=== PATIENT | male | born 1950 | race Two or more races ===

== ENCOUNTER 2019-08-12 05:47 | Inpatient (IN) | payer MEDICARE ==
[2019-08-12] VITALS (15 sets, daily range): BP systolic 108–151; BP diastolic 57–91
[~2019-08-12] VITALS: Ht 167.6 cm; Wt 79.8 kg
[~2019-08-12 05:47] MED LIST: FLOMAX0.4 MG ORAL; LIPITOR10 MG ORAL; METOPROLOL SUCC25 MG ORAL
[2019-08-12] MEDS ORDERED: Lidocaine 1% MPF 10mg/ml 5ml ONE (06:46)
[2019-08-12] MEDS ORDERED: LR 1000ml 1,000 ML IVLG SCH (06:47)
[2019-08-12] MEDS ORDERED: Sodium Chloride 10ml vial INJ ONE (06:50)
[2019-08-12] MEDS ORDERED: Dexamethasone 4mg/ml vial ONE (06:50)
[2019-08-12] MEDS ORDERED: fentaNYL 100 mcg/2 mL IV ONE (06:51)
[2019-08-12] MEDS ORDERED: Ketamine 500mg/10ml vial ONE (06:51)
[2019-08-12] MEDS ORDERED: Meperidine 25mg/0.5ml Inj (FOR RIGORS ONLY) IV PRN (07:00)
[2019-08-12] MEDS ORDERED: Hydromorphone 0.5mg/0.5ml inj IVP PRN (07:00)
[2019-08-12] MEDS ORDERED: Acetaminophen (Non formulary) 100 ML IV ONE (07:00)
[2019-08-12] MEDS ORDERED: fentaNYL 100 mcg/2 mL IV PRN (07:00)
[2019-08-12] MEDS ORDERED: HYDROcodone/Acetamin 5/325 tab ORAL PRN ×2 (07:00→09:45)
[2019-08-12] MEDS ORDERED: DiphenhydrAMINE 50mg/ml Inj IVP PRN (07:00)
[2019-08-12] MEDS ORDERED: Atropine Sulfate 0.4mg/ml inj IVP PRN (07:00)
[2019-08-12] MEDS ORDERED: oxyCODONE HCL/Acetaminophen 5/325mg ORAL PRN (07:00)
[2019-08-12] MEDS ORDERED: Ketorolac 30mg Inj IV PRN ×2 (07:00)
[2019-08-12] MEDS ORDERED: LORazepam Inj 2mg/ml 1ml IV PRN (07:00)
[2019-08-12] MEDS ORDERED: Labetalol 5mg/ml 20ml vial IV PRN (07:00)
[2019-08-12] MEDS ORDERED: ceFAZolin sod 1 GM in NS 55 ML IVPB ONE (07:00)
[2019-08-12] MEDS ORDERED: Midazolam 2mg/2ml Inj IVP PRN (07:00)
[2019-08-12] MEDS ORDERED: HYDROcodone/Acetamin 7.5/325 tab ORAL PRN (07:00)
[2019-08-12] MEDS ORDERED: Metoclopramide 10mg/2ml Inj IVP PRN (07:00)
--- NOTE | 2019-08-12 07:26 | Anethesia Preoperative Eval ---
Anesthesia Pre-op PMH/ROS General Date of Evaluation: Aug 12, 2019 Time of Evaluation: 07:41 Anesthesiologist: Molly ASA Score: ASA 3 Mallampati Score Class I : Soft palate, uvula, fauces, pillars visible Class II: Soft palate, uvula, fauces visible Class III: Soft palate, base of uvula visible Class IV: Only hard plate visible Mallampati Classification: Class II Surgeon: Cory Diagnosis: BPH Surgical Procedure: Open Simple Prostatectomy Anesthesia History: none Family History: no anesthesia problems Allergies: Coded Allergies: No Known Allergies (Unverified , 08/11/19) Medications: see eMAR Patient NPO?: Yes NPO Date: Aug 11, 2019 NPO Time: 1900 Past Medical History Cardiovascular: Reports: HTN, other - HL Gastrointestinal/Genitourinary: Reports: GERD, other - BPH HEENT: Reports: cataract (L), cataract (R) PSxH Narrative: Cholecystectomy Anesthesia Pre-op Phys. Exam Physician Exam Last Vital Signs Date Time Temp Pulse Resp B/P (MAP) Pulse Ox O2 Delivery O2 Flow Rate FiO2 08/12/19 07:08 97.6 81 20 134/84 (101) 98 08/12/19 06:37 Room Air Constitutional: NAD Neurologic: CN 2-12 intact Cardiovascular: RRR Respiratory: CTA Gastrointestinal: S/NT/ND Airway Exam Mallampati Score: Class II MO: full ROM: limited Teeth: missing, intact Anesthesia Pre-op A/P Risk Assessment & Plan Assessment: ASA 3 Plan: GA, SED, GlideScope Go Status Change Before Surgery: No Pre-Antibiotics Dru Gram Ancef IV Given Within 1 Hr of Incision: Yes Time Given: 08:01 Tera Barnes MD Aug 12, 2019 07:26
--- NOTE | 2019-08-12 07:27 | Immediate Post-Op Evaluation ---
Immediate Post-Op Evalulation Immediate Post-Op Evalulation Procedure: Open Simple Prostatectomy Date of Evaluation: Aug 12, 2019 Time of Evaluation: 09:55 IV Fluids: 900 LR Blood Products: 0 Estimated Blood Loss: 100 Urinary Output: 200 Blood Pressure Systolic: 117 Blood Pressure Diastolic: 78 Pulse Rate: 82 Respiratory Rate: 16 O2 Sat by Pulse Oximetry: 100 Temperature (Fahrenheit): 97.5 Pain Score (1-10): 2 Nausea: No Vomiting: No Complications 0 Patient Status: awake, reacts, patent, extubated, none Hydration Status: adequate Dru Gram Ancef IV Given Within 1 Hr of Incision: Yes Time Given: 08:01 Tera Barnes MD Aug 12, 2019 07:27
[2019-08-12] MEDS ORDERED: ProvayBlue 5mg/ml 10ml amp INJ ONE (07:30)
--- NOTE | 2019-08-12 07:46 | Pre-Procedure Note/Attestation ---
Pre-Procedure Note/Attestation Complete Prior to Procedure Planned Procedure: not applicable Procedure Narrative: open symple prostatectomy Indications for Procedure Pre-Operative Diagnosis: BPH Retention Attestation I attest that I discussed the nature of the procedure; its benefits; risks and complications; and alternatives (and the risks and benefits of such alternatives ), prior to the procedure, with the patient (or the patient's legal corporate sales representative). I attest that, if there was a reasonable possibility of needing a blood transfusion, the patient (or the patient's legal corporate sales representative) was given the [facility] standardized written summary, pursuant to the [place] Blood Safety Act ([place] Health and Safety Code # 1645, as amended). I attest that I re-evaluated the patient just prior to the surgery and that there has been no change in the patient's H&P, except as documented below: Jose L Ray MD Aug 12, 2019 07:46
[2019-08-12] MEDS ORDERED: Propofol 200mg/20ml IV ONE (08:00)
[2019-08-12] MEDS ORDERED: NS Irrig 1000ml ONE (08:00)
[2019-08-12] MEDS ORDERED: LR 1000ml ONE (08:00)
[2019-08-12] MEDS ORDERED: NS Irrig 2000ml IRRIG ONE (08:00)
[2019-08-12] MEDS ORDERED: Sterile Water Irrig 1000ml IRRIG ONE (08:00)
[2019-08-12] MEDS ORDERED: Neostigmine 1mg/ml 10ml Inj ONE (09:00)
[2019-08-12] MEDS ORDERED: Glycopyrrolate 0.2mg/ml 1ml Vial ONE (09:00)
--- NOTE | 2019-08-12 09:47 | 48 Hour Post Anesthesia Eval ---
Post Anesthesia Evaluation Procedure: Open Simple Prostatectomy Date of Evaluation: Aug 12, 2019 Time of Evaluation: 12:21 Blood Pressure Systolic: 156 0: 78 Pulse Rate: 72 Respiratory Rate: 18 Temperature (Fahrenheit): 98.2 O2 Sat by Pulse Oximetry: 100 Airway: patent Nausea: No Vomiting: No Pain Intensity: 2 Hydration Status: adequate Cardiopulmonary Status: Stable Mental Status/LOC: patient returned to baseline Follow-up Care/Observations: 0 Post-Anesthesia Complications: 0 Follow-up care needed: N/A Tear Barnes MD Aug 12, 2019 09:47
--- NOTE | 2019-08-12 09:53 | Brief Operative Note ---
Immediate Post Operative Note Operative Note Pre-op Diagnosis: BPH Retention Procedure: open simple prostatectomy Post-op Diagnosis: same Post-op Diagnosis: same as pre-op Surgeon: Wilian Ray Anesthesia: general Specimen: yes Complications: none Condition: stable Fluids: 500 Estimated Blood Loss: minimal Drains: none Implant(s) used?: No Jose L Ray MD Aug 12, 2019 09:53
[2019-08-12 10:39] LABS: HEMATOCRIT 36.2 % (42.0-52.0); HEMOGLOBIN 13.6 G/DL (14.2-18.0); MEAN CORPUSCULAR VOLUME 89 FL (80-99); PLATELET COUNT 147 K/UL (150-450); RED BLOOD COUNT 4.09 M/UL (4.70-6.10); RED CELL DISTRIBUTION WIDTH 11.1 % (11.6-14.8); WHITE BLOOD COUNT 9.2 K/UL (4.8-10.8)
--- NOTE | 2019-08-12 10:50 | NUR ---
NURSE NOTES: Patient was transferred from PACU via hospital bed. On 3L/min. No s/s of distress/pain at this moment. IV on L hand 20g intact and patent. 3-way joe noted, on CBI. Family at the bedside. Orientation on new unit given. Belongings were accounted and given to family. Side rails x2. Bed in the lowest, locked, and alarm on. Call light within reach. Will continue to monitor
[2019-08-12 10:53] LABS: ANION GAP 10 mmol/L (5-15); BLOOD UREA NITROGEN 16 mg/dL (7-18); CALCIUM 7.9 MG/DL (8.5-10.1); CARBON DIOXIDE 27 MMOL/L (21-32); CHLORIDE 106 MMOL/L (98-107); POTASSIUM 4.3 MMOL/L (3.5-5.1); SODIUM 143 MMOL/L (136-145)
[2019-08-12] MEDS: HYDROmorphone 1mg/ml Carpuject IVP PRN ×3 (13:04→22:12)
--- NOTE | 2019-08-12 14:09 | NUR ---
CASE MANAGEMENT:REVIEW 69 YR OLD MALE HERE FOR ELECTIVE SURGERY SI: BPH RETENTION 97.6 81 20 134/84 98% ON RA H/H-13.6/36.2 PLT-147 GLUCOSE+125 IS: TO SURGERY: OPEN SIMPLE PROSTATECTOMY IV ANCEF Q8HRS IVF@100/HR IV DILAUDID Q3HRS PRN : TO MED/SURG POST OP 3 EAST DCP: FROM HOME
[2019-08-12] MEDS: D5 1/2NS w/KCl 20mEq 1,000 ML IV SCH ×2 (14:30→20:43)
[2019-08-12] MEDS: ceFAZolin sod 2 GM in D5W 110 ML IV SCH ×2 (16:49→23:28)
[2019-08-12] MEDS: Docusate 100mg cap ORAL SCH (17:13)
--- NOTE | 2019-08-12 19:01 | NUR ---
NURSE NOTES: Received report from SHAUNA Dalton. Pt is awake, lying semi-russo's; comfortably resting. No signs of acute distress noted. Pt denies any pain at this time. AOx4; able to make needs known. Family at bedside. Checked IV site, line, and rate; patent and running. Dressing on the lower abdomen dry and intact. CBI noted; patent and running. No erythema, bleeding, or infiltration noted. Bed at lowest position. Brakes on. Siderails up x3. Call light within reach. Will continue to monitor.
--- NOTE | 2019-08-12 19:10 | NUR ---
HAND-OFF: Report given to SHAUNA Caceres.
[2019-08-12] MEDS: Tamsulosin 0.4mg cap ORAL SCH (20:42)
[2019-08-13] VITALS: BP 100/65
[2019-08-13] MEDS: HYDROmorphone 1mg/ml Carpuject IVP PRN ×5 (03:00→23:43)
[2019-08-13 04:00] VITALS: BP 101/63
[2019-08-13 07:01] LABS: ANION GAP 6 mmol/L (5-15); BLOOD UREA NITROGEN 17 mg/dL (7-18); CALCIUM 7.9 MG/DL (8.5-10.1); CARBON DIOXIDE 30 MMOL/L (21-32); CHLORIDE 104 MMOL/L (98-107); CREATININE 1.1 MG/DL (0.55-1.30); POTASSIUM 4.8 MMOL/L (3.5-5.1); SODIUM 139 MMOL/L (136-145)
--- NOTE | 2019-08-13 07:07 | NUR ---
NURSE NOTES: Report received from Nicki VILLATORO, rounds made. Patient resting in semi-fowlers position in bed, alert/oriented x4, calm. No distress on O2 3LNC. Encouraged IS. Denies NV on clear liquids. Complains of mild pain to lower abdomen, will medicate see eMAR. LH IV D5 1/2 + 20 KCL at 100 ml/hr infusing, site asymptomatic. CBI infusing via FC (in place with tape anchor, no bleeding or drainage at penile site), without difficulty, output light red, clear. Bilateral SCDs on. Spouse at bedside. Bed in lowest position, call light in reach, will continue to monitor. Addendum: 08/13/19 at 1237 by Sharri Pelaez RN Lower abdomen dressing CDI.
--- NOTE | 2019-08-13 07:07 | NUR ---
HAND-OFF: Report given to SHAUNA Harrell. Pt is awake and in stable condition. Plan of care endorsed.
[2019-08-13 07:10] LABS: BASOPHILS % (AUTO) 0.1 % (0.0-2.0); HEMATOCRIT 33.4 % (42.0-52.0); HEMOGLOBIN 12.4 G/DL (14.2-18.0); LYMPHOCYTES % (AUTO) 12.4 % (20.0-45.0); MEAN CORPUSCULAR VOLUME 89 FL (80-99); MONOCYTES % (AUTO) 8.2 % (1.0-10.0); NEUTROPHILS % (AUTO) 79.3 % (45.0-75.0); PLATELET COUNT 170 K/UL (150-450); RED BLOOD COUNT 3.76 M/UL (4.70-6.10); RED CELL DISTRIBUTION WIDTH 10.8 % (11.6-14.8); WHITE BLOOD COUNT 8.8 K/UL (4.8-10.8)
[2019-08-13] MEDS: D5 1/2NS w/KCl 20mEq 1,000 ML IV SCH ×2 (07:59→17:14)
[2019-08-13 08:00] VITALS: BP 100/61
[2019-08-13] MEDS: Docusate 100mg cap ORAL SCH ×2 (08:16→18:24)
[2019-08-13] MEDS: Metoprolol Succinate XL 25mg tab ORAL SCH (09:00)
[2019-08-13 12:00] VITALS: BP 122/69
--- NOTE | 2019-08-13 13:40 | NUR ---
NURSE NOTES: Patient up with RN and spouse, ambulated to doorway then to bathroom. No flatulence, no BM yet. BS hypoactive, appetite good on clear liquids, no NV. Out of bed for 15 minutes. Notified PT of PT orders, will see patient tomorrow due to patient does not want to work with PT at this time since he was just up.
--- NOTE | 2019-08-13 14:02 | NUR ---
PT NOTE Received MD order for PT evaluation. Attempted to see patient for PT evaluation however patient was just up ambulating with RN and declines to participate with PT evaluation at this time. Sharri VILLATORO aware, will follow up in a.m.
[2019-08-13 16:00] VITALS: BP 126/73
--- NOTE | 2019-08-13 16:08 | NUR ---
CASE MANAGEMENT:REVIEW 69 YR OLD MALE HERE FOR ELECTIVE SURGERY SI: BPH RETENTION 98.3 90 20 122/69 98% ON RA PLT+147 IS: TO SURGERY: OPEN SIMPLE PROSTATECTOMY IV ANCEF Q8HRS IVF@100/HR : TO MED/SURG POST OP
--- NOTE | 2019-08-13 19:27 | NUR ---
HAND-OFF: Report given to Nicki VILLATORO, rounds made. Endorsed new orders from Dr. Ray for (Mylanta and Dulcolax Supp)due to patient c/o upper abdominal gas pain/distention. Patient complains of feeling feverish at 1908, temperature assessed 98.8. Output: CBI 9000 (in) - 9750 (out) = -750 ml
--- NOTE | 2019-08-13 19:27 | NUR ---
NURSE NOTES: Received report from SHAUNA Harrell. Pt is awake, lying semi-russo's; comfortably resting. No signs of acute distress noted. Pt denies any pain at this time. Family at bedside. AOx4; able to make needs known. Checked IV site, line, and rate; patent and running. No erythema, bleeding, or infiltration noted. Bed at lowest position. Brakes on. Siderails up x2. Call light within reach. Will continue to monitor.
[2019-08-13 20:00] VITALS: BP 113/68
[2019-08-13] MEDS: Tamsulosin 0.4mg cap ORAL SCH (20:14)
--- NOTE | 2019-08-13 23:45 | Consultation ---
DATE OF CONSULTATION: 08/13/2019 HISTORY AND PHYSICAL/INTERNAL MEDICINE CONSULTATION HISTORY OF PRESENT ILLNESS: This is a 69-year-old male, who was undergone open simple prostatectomy yesterday by Dr. Jose L Ray and the procedure itself was uncomplicated. The patient states he is feeling well. At this time, he reports that he has not had a bowel movement. His Esparza catheter is in place and he is noted to be on bladder irrigation. PAST HISTORY: Notable for history of hypertension, hyperlipidemia, and BPH. PAST SURGICAL HISTORY: Prostatectomy. HOME MEDICATIONS: Include metoprolol, Flomax, and Lipitor. ALLERGIES: None. REVIEW OF SYSTEMS: Denies any headaches, hematemesis, melena, hematochezia, or weight loss. SOCIAL HISTORY: Notable for previous tobacco usage. PHYSICAL EXAMINATION: GENERAL: Reveals a 69-year-old male. HEENT: Unremarkable. LUNGS: Shows clear breath sounds bilaterally. ABDOMEN: Soft. EXTREMITIES: There is no edema. NEUROLOGIC: Nonfocal. LABORATORY DATA: Lab testing is unremarkable. Normal CBC and BMP. IMPRESSION: 1. Hypertension. 2. Hyperlipidemia. 3. Previous smoker. 4. BPH. 5. Status post prostatectomy. DISCUSSION: 1. We will mobilize. 2. Advanced diet if the patient has a bowel movement. 3. Discussed with family. 4. . 5. Check laboratories in the a.m. 6. We will follow carefully. Jean Bone M.D. DR: MARYAN JOB#: [id number] CC:
[2019-08-14] VITALS: BP 125/81
[2019-08-14] MEDS: D5 1/2NS w/KCl 20mEq 1,000 ML IV SCH ×2 (03:36→13:06)
[2019-08-14 04:00] VITALS: BP 109/70
[2019-08-14] MEDS: HYDROmorphone 1mg/ml Carpuject IVP PRN ×3 (05:41→18:46)
[2019-08-14 06:37] LABS: BASOPHILS % (AUTO) 0.6 % (0.0-2.0); EOSINOPHILS % (AUTO) 0.8 % (0.0-3.0); HEMATOCRIT 30.6 % (42.0-52.0); HEMOGLOBIN 11.4 G/DL (14.2-18.0); LYMPHOCYTES % (AUTO) 22.1 % (20.0-45.0); MEAN CORPUSCULAR VOLUME 88 FL (80-99); MONOCYTES % (AUTO) 8.7 % (1.0-10.0); NEUTROPHILS % (AUTO) 67.9 % (45.0-75.0); PLATELET COUNT 146 K/UL (150-450); RED BLOOD COUNT 3.47 M/UL (4.70-6.10); RED CELL DISTRIBUTION WIDTH 10.9 % (11.6-14.8); WHITE BLOOD COUNT 6.7 K/UL (4.8-10.8)
[2019-08-14 06:52] LABS: ANION GAP 3 mmol/L (5-15); BLOOD UREA NITROGEN 13 mg/dL (7-18); CARBON DIOXIDE 34 MMOL/L (21-32); CHLORIDE 104 MMOL/L (98-107); SODIUM 141 MMOL/L (136-145)
--- NOTE | 2019-08-14 07:35 | NUR ---
HAND-OFF: Report given to SHAUNA Harrell. Pt is awake and in stable condition. Plan of care endorsed.
--- NOTE | 2019-08-14 07:37 | NUR ---
NURSE NOTES: Report received from Nicki VILLATORO, patient up ambulating in halls with spouse. Patient AOX4, calm, no distress on RA. Mild facial grimacing while ambulating, pain 4/10, will medicate as ordered. IVF (D5 1/2 + 20 KCL at 100 ml/hr) infusing to LH. No NV. Patient had x4 liquid BMs, will advance diet to regular. CBI infusing via three way FC, intact, no bleeding/drainage, output light red/clear. Lower abdominal dressing remains, CDI. Encouraged IS, not wearing bilateral SCDs while in bed due to out of bed more frequently. Will continue to monitor.
[2019-08-14 08:00] VITALS: BP 101/67
[2019-08-14] MEDS: Docusate 100mg cap ORAL SCH ×2 (08:45→18:42)
[2019-08-14] MEDS: Metoprolol Succinate XL 25mg tab ORAL SCH (08:45)
--- NOTE | 2019-08-14 10:59 | Pulmonology Progress Note ---
Assessment/Plan Assessment/Plan IMPRESSION: 1. Hypertension. 2. Hyperlipidemia. 3. Previous smoker. 4. BPH. 5. Status post prostatectomy. DISCUSSION: 1. Continue to ambulate. 2. Advanced diet if the patient has had a bowel movement. 3. Discussed with family. 4. Esparza care 5. DC planning for home today Jean Bone M.D. Subjective Interval Events: Feeling better Constitutional: Reports: no symptoms HEENT: Repors: no symptoms Respiratory: Reports: no symptoms Cardiovascular: Reports: no symptoms Gastrointestinal/Abdominal: Reports: no symptoms Allergies: Coded Allergies: No Known Allergies (Unverified , 08/11/19) Objective Last 24 Hour Vital Signs Date Time Temp Pulse Resp B/P (MAP) Pulse Ox O2 Delivery O2 Flow Rate FiO2 08/14/19 08:45 89 101/67 08/14/19 08:00 98.0 89 18 101/67 (78) 98 08/14/19 04:00 99.4 98 20 109/70 (83) 94 08/14/19 00:44 98.7 08/14/19 00:00 100.6 112 20 125/81 (96) 94 08/13/19 21:00 Nasal Cannula 3.0 08/13/19 20:00 98.5 106 19 113/68 (83) 99 08/13/19 19:08 98.8 08/13/19 16:00 99.3 97 18 126/73 (90) 99 08/13/19 12:00 98.3 90 20 122/69 (86) 99 Intake and Output 08/13/19 08/14/19 19:00 07:00 Intake Total 16209 ml 350 ml Output Total 9750 ml 1450 ml Balance 1314 ml -1100 ml Intake Oral 1064 ml 250 ml IV Total 1000 ml 100 ml Other 9000 ml Output Urine Total 9750 ml 1450 ml General Appearance: no acute distress HEENT: normocephalic Respiratory/Chest: chest wall non-tender, lungs clear Cardiovascular: normal peripheral pulses Abdomen: normal bowel sounds Microbiology Date/Time Source Procedure Growth Status 08/12/19 07:00 Nasal Nares MRSA Culture - Final NO METHICILLIN RESISTANT STAPH AUREUS... Complete Laboratory Tests 08/14/19 04:45: White Blood Count 6.7, Red Blood Count 3.47L, Hemoglobin 11.4L, Hematocrit 30.6L , Mean Corpuscular Volume 88, Mean Corpuscular Hemoglobin 32.8H, Mean Corpuscular Hemoglobin Concent 37.1H, Red Cell Distribution Width 10.9L, Platelet Count 146L, Mean Platelet Volume 5.5L, Neutrophils (%) (Auto) 67.9, Lymphocytes (%) (Auto) 22.1, Monocytes (%) (Auto) 8.7, Eosinophils (%) (Auto) 0.8, Basophils (%) (Auto) 0.6, Sodium Level 141, Potassium Level 4.0, Chloride Level 104, Carbon Dioxide Level 34H, Anion Gap 3L, Blood Urea Nitrogen 13, Creatinine 1.0, Estimat Glomerular Filtration Rate > 60, Glucose Level 110H, Calcium Level 8.0L Current Medications Medications (Trade) Dose Ordered Sig/Dana Route PRN Reason Start Time Stop Time Status Last Admin Dose Admin Acetaminophen (Tylenol) 650 mg Q6H PRN ORAL Mild Pain (Pain Scale 1-3) 08/12/19 09:45 09/11/19 09:44 08/14/19 00:14 Acetaminophen/ Hydrocodone Bitart ([place] 5/325) 1 tab Q4H PRN ORAL Moderate Pain (Pain Scale 4-6) 08/12/19 09:45 08/19/19 09:44 08/14/19 09:55 Al Hydroxide/Mg Hydroxide (Mylanta) 30 ml Q6H PRN ORAL GAS PAIN 08/13/19 19:15 09/12/19 19:14 08/13/19 20:14 Atorvastatin Calcium (Lipitor) 10 mg BEDTIME ORAL 08/12/19 21:00 09/11/19 20:59 08/13/19 20:15 Dextrose/ Electrolytes 1,000 ml @ 100 mls/hr Q10H IV 08/12/19 11:30 09/11/19 11:29 08/14/19 03:36 Docusate Sodium (Colace) 100 mg TWICE A DAY ORAL 08/12/19 18:00 09/11/19 17:59 08/13/19 18:24 Hydromorphone HCl (Dilaudid) 1 mg Q3H PRN IVP pain score 4-6 08/12/19 09:45 08/19/19 09:44 08/14/19 05:41 Metoprolol Succinate (Toprol XL) 25 mg DAILY ORAL 08/13/19 09:00 09/12/19 08:59 Ondansetron HCl (Zofran) 4 mg Q6H PRN IVP Nausea & Vomiting 08/12/19 11:30 09/11/19 11:29 Tamsulosin HCl (Flomax) 0.4 mg BEDTIME ORAL 08/12/19 21:00 09/11/19 20:59 08/13/19 20:14 Temazepam (RestoriL) 7.5 mg QHS PRN ORAL Insomnia 08/12/19 11:24 08/19/19 11:23 Jean Bone MD Aug 14, 2019 10:59
[2019-08-14 12:00] VITALS: BP 115/69
--- NOTE | 2019-08-14 13:57 | NUR ---
P.T NOTE: P.T EVALUATION COMPLETED. PATIENT IS BASELINE INDEPENDENT IN ALL AREAS OF ADL/SELF CARE AND GAIT/LOCOMOTION. SKILLED P.T SERVICE IS NOT NEEDED AT THIS TIME. EDUCATED PATIENT IMPORTANCE OF OOB ACTIVITIES DURING STAY WELL DEEP BREATHING EX'S USING INCENTIVE SPIROMETER DURING STAY. PATIENT VERBALIZE UNDERSTANDING. NO FURTHER P.T FOLLOW UP NEEDED. THANK YOU FOR THIS REFERRAL.
[2019-08-14 16:00] VITALS: BP 120/83
[2019-08-14] MEDS ORDERED: LEVAQUIN500 MG ORAL (16:32)
[2019-08-14] MEDS ORDERED: COLACE100 MG ORAL (16:32)
[2019-08-14] MEDS ORDERED: NORCO 5-325 TA1 EACH ORAL (16:32)
--- NOTE | 2019-08-14 17:15 | NUR ---
NURSE NOTES: Reviewed CBI and patient current status with Dr. Ray, orders received to DC CBI, plug port, leave FC, IVF, start Levaquin IV Q24. Patient and spouse updated, verbalized understanding. CBI/IVF discontinued at 1635. Prescriptions ( Dorr, Levaquin, Colace) faxed to [facility] [place], delivered, sent down to pharmacy security until discharge tomorrow, patient and spouse aware.
--- NOTE | 2019-08-14 19:36 | NUR ---
HAND-OFF: Report given to Moreno VILLATORO, rounds made. Endorsed update in POC. Outputs: FC: [id number]
--- NOTE | 2019-08-14 19:38 | NUR ---
NURSE NOTES: Received report from Sharri VILLATORO. Patient is a/o x4, awake, in bed. Son and is at bedside. No c/o pain or distress noted at this time. IV on Lt hand is patent and intact. No c/o pain noted at this time. breathing is even and unlabored on room air; 96% O2 sat. No SOB noted at this time. Dressing on abdomen is c/d/i. Esparza cath in draining to gravity, intact, no bleeding noted. Encouraged IS. Refused SCDs at this time. Bed is on alarm, locked, and lowest position. Call light within reach. Will continue to monitor.
[2019-08-14 20:00] VITALS: BP 144/83
[2019-08-14] MEDS: Tamsulosin 0.4mg cap ORAL SCH (21:00)
--- NOTE | 2019-08-14 22:30 | NUR ---
NURSE NOTES: urine output: Pinkish, 800 ml
--- NOTE | 2019-08-14 23:48 | NUR ---
HAND-OFF: Report given to Go RN. Patient in stable condition.
--- NOTE | 2019-08-14 23:50 | NUR ---
NURSE NOTES: Receive a report from SHAUNA Mayer. Pt is asleep without acute distress. Pinkish urine patent with joe catheter. No noted blood blots. Surgery site dressing kept dry and clean. IV H/L on left hand is patent without infiltration. Call light within reach. Will continue to monitor.
[2019-08-15] MEDS: HYDROmorphone 1mg/ml Carpuject IVP PRN ×2 (01:34→05:30)
--- NOTE | 2019-08-15 02:05 | NUR ---
NURSE NOTES: Pt is in the bathroom with sweating. Surgery site kept dry and clean. Pain is 6/10. Given prn pain medication. Pinkish urine patent via joe catheter. Answer pt questions. Will continue to monitor.
[2019-08-15 04:00] VITALS: BP 124/61
--- NOTE | 2019-08-15 04:00 | NUR ---
NURSE NOTES: Encourage to ambulation to pass gas. Pt walked around the unit with staff assist. Noted a little bit dark urine than earlier but pinkish urine on catheter. V/S stable. Will continue to monitor.
--- NOTE | 2019-08-15 06:00 | NUR ---
NURSE NOTES: Pt feels comfortable after pain medication and pinkish urine noted. Wanted to have BM before discharge today and requesting for suppository for BM. Will notify for pt's request and endorse AM shift. Will continue to monitor.
[2019-08-15 08:00] VITALS: BP 125/83
[2019-08-15] MEDS: Metoprolol Succinate XL 25mg tab ORAL SCH (09:00)
--- NOTE | 2019-08-15 09:15 | NUR ---
NURSE NOTES: Rounds made. Patient alert, oriented x4, calm. No distress on RA. Abdominal pain 2/10, denies need for pain medication at this time. IV heplocked to left hand, intact. Abdominal dressing CDI. FC remains in place with anchor, light pink/red output. Up ambulating with spouse in halls. Notified Dr. Ray that patient reports Tebbetts is not effective, awaiting call back.
[2019-08-15] MEDS: Docusate 100mg cap ORAL SCH (09:45)
--- NOTE | 2019-08-15 10:27 | Pulmonology Progress Note ---
Assessment/Plan Assessment/Plan IMPRESSION: 1. Hypertension. 2. Hyperlipidemia. 3. Previous smoker. 4. BPH. 5. Status post prostatectomy. DISCUSSION: 1. Continue to ambulate. 2. Advanced diet 3. Discussed with family. 4. Joe care 5. DC planning for home today 6/. Will withdraw 20 cc fluid from joe for comfort; discussed with urology. Jean Bone M.D. Subjective Interval Events: Better overall Constitutional: Reports: no symptoms HEENT: Repors: no symptoms Respiratory: Reports: no symptoms Cardiovascular: Reports: no symptoms Gastrointestinal/Abdominal: Reports: no symptoms Allergies: Coded Allergies: No Known Allergies (Unverified , 08/11/19) Objective Last 24 Hour Vital Signs Date Time Temp Pulse Resp B/P (MAP) Pulse Ox O2 Delivery O2 Flow Rate FiO2 08/15/19 09:00 90 125/83 08/15/19 08:00 98.5 90 20 125/83 (97) 96 08/15/19 04:00 98.2 93 20 124/61 (82) 94 08/14/19 21:00 Room Air 08/14/19 20:00 98.2 98 18 144/83 (103) 96 08/14/19 16:00 98.7 91 20 120/83 (95) 98 08/14/19 12:00 98.2 91 16 115/69 (84) 98 Intake and Output 08/14/19 08/15/19 19:00 07:00 Intake Total 5200 ml 100 ml Output Total 7150 ml 1850 ml Balance -1950 ml -1750 ml Intake Oral 1000 ml IV Total 700 ml 100 ml Other 3500 ml Output Urine Total 7150 ml 1850 ml General Appearance: no acute distress HEENT: normocephalic Respiratory/Chest: chest wall non-tender, lungs clear Cardiovascular: normal peripheral pulses Abdomen: normal bowel sounds Current Medications Medications (Trade) Dose Ordered Sig/Dana Route PRN Reason Start Time Stop Time Status Last Admin Dose Admin Acetaminophen (Tylenol) 650 mg Q6H PRN ORAL Mild Pain (Pain Scale 1-3) 08/12/19 09:45 09/11/19 09:44 08/14/19 00:14 Acetaminophen/ Hydrocodone Bitart ([place] 5/325) 1 tab Q4H PRN ORAL Moderate Pain (Pain Scale 4-6) 08/12/19 09:45 08/19/19 09:44 08/14/19 09:55 Al Hydroxide/Mg Hydroxide (Mylanta) 30 ml Q6H PRN ORAL GAS PAIN 08/13/19 19:15 09/12/19 19:14 08/13/19 20:14 Atorvastatin Calcium (Lipitor) 10 mg BEDTIME ORAL 08/12/19 21:00 09/11/19 20:59 08/13/19 20:15 Docusate Sodium (Colace) 100 mg TWICE A DAY ORAL 08/12/19 18:00 09/11/19 17:59 08/15/19 09:45 Hydromorphone HCl (Dilaudid) 1 mg Q3H PRN IVP pain score 4-6 08/12/19 09:45 08/19/19 09:44 08/15/19 05:30 Levofloxacin 100 ml @ 100 mls/hr Q24H IVPB 08/14/19 17:00 08/21/19 16:59 08/14/19 18:42 Metoprolol Succinate (Toprol XL) 25 mg DAILY ORAL 08/13/19 09:00 09/12/19 08:59 Ondansetron HCl (Zofran) 4 mg Q6H PRN IVP Nausea & Vomiting 08/12/19 11:30 09/11/19 11:29 Tamsulosin HCl (Flomax) 0.4 mg BEDTIME ORAL 08/12/19 21:00 09/11/19 20:59 08/13/19 20:14 Temazepam (RestoriL) 7.5 mg QHS PRN ORAL Insomnia 08/12/19 11:24 08/19/19 11:23 Jean Bone MD Aug 15, 2019 10:27
--- NOTE | 2019-08-15 11:55 | NUR ---
NURSE NOTES: Provided one on one instructions with demonstration on how to apply leg bag (day time) and drainage bag (bedtime), provided supplies (canisters, basin, extra leg). Spouse, patient and adult children verbalized understanding. Leg bag connected at this time, light red/pink urine output noted draining in leg bag without difficulty. Will continue to monitor. Addendum: 08/15/19 at 1523 by Sharri Pelaez RN Removed 20 ml from FC balloon as ordered at 1155. FC remains in place. Will continue to monitor.
[2019-08-15 12:00] VITALS: BP 127/80
--- NOTE | 2019-08-15 12:55 | NUR ---
NURSE NOTES: Discharge instructions and new prescription medications reviewed with patient/family, verbalized understanding. All belongings, Esparza supplies (leg bag and drainage bag), prescription medications (picked up from Pharmacy security), given to patient/family. IV heplock discontinued, no active bleeding. Abdominal dressing remains CDI. FC site remains in place with anchor/draining to leg bag. Patient sent down to lobby via WC and RN, in stable condition. Discharged home at 1255.
--- NOTE | 2019-08-17 09:00 | Operative Note - Dictated ---
DATE OF OPERATION: 08/12/2019 PREOPERATIVE DIAGNOSES: 1. BPH. 2. Urinary retention. POSTOPERATIVE DIAGNOSES: 1. BPH. 2. Urinary retention. OPERATIONS: Simple retropubic prostatectomy. OPERATED BY: Jose L Ray M.D. ANESTHESIA: General. FINDINGS: Severely enlarged prostate. INDICATION FOR PROCEDURE: The patient had severe obstructive voiding symptoms and enlarged prostate. He did not respond well to medications and one of . I discussed with him the options for surgery due to the size of the prostate more than 120 g. I recommended open prostatectomy, he agrees. He understands all potential complications, he signed the consent. DESCRIPTION OF PROCEDURE: He was brought to the operating room, placed in supine position. Prepped and draped in a standard fashion. Under general anesthesia, a Pfannenstiel incision 7 cm was made and rectus fascia was opened. Rectus muscles were retracted on both sides, exposed the retrovesical space. Blunt dissection of the prostate with removal of the fat exposing the external bulging venous complex, which was ligated between 2 [id number] Vicryl sutures. The capsule was then opened and the adenoma was enucleated to one piece, both right and left and medial lobes and sent to pathologic examination. Moderate bleeding from the capsule of the prostate with interrupted sutures, electrocautery, and closure 5 and 7 o'clock [id number] 2-0 Vicryl sutures on the bladder neck. Bladder neck mucosa was advanced forward. The patient's capsule was then closed over 24 three-way Esparza catheter. Estimated blood was approximately 50 mL. Bladder was copiously irrigated with no evidence of leaks. Wound was then closed in sequential manner with running 0 Vicryl suture for the fascia, tina for the skin. Sponge count and instrument count were correct. Jose L Ray M.D. DR: SUKHWINDER JOB#: [id number] CC:
--- NOTE | 2019-08-17 11:07 | Discharge Summary ---
Discharge Summary Hospital Course Date of Admission Aug 12, 2019 at 05:56 Date of Discharge Aug 15, 2019 at 12:55 Admitting Diagnosis BPH. Urinary retention Reason for Hospitalization: elective surgery AMBIKA Aguayo is a 69 year old male who was admitted on Aug 12, 2019 at 05:56 for BPH and Urinary retention. Patient was admitted for elective surgery. Consultations Dr Bone IM Procedures s/p 08/12/[address] Ray Simple retropubic prostatectomy. Hospital Course status post surgery course of recovery uneventful initially IVF fluids s/p perioperative antibiotics initially CBI until urine output cleared incision with dressing, remained clean , dry and intact pain management was; addressed , and pain was controlled remained hemodynamically stable ambulated with PT fall precautions maintained; safe for ambulation DVT prophylaxis provided use of incentive spirometry was encouraged while in the bed slowly started on diet and wsas advanced as tolerated was able to tolerate diet , IV fluids discontinued GI prophylaxis provided antiemetics were on board as needed blood pressure was managed with current regimen and remained stable bowel regimen instituted patient was stable for discharge patient and family instructed how to attach the leg bag ( during the day) and Esparza catheter ( at night) and how to empty them ; verbalzied understanding discharge instructions provided prescription given patient was stable for discharge home, services arranged by surgeon follow up with surgeon as outpatient as advised by surgeon FINAL DIAGNOSES 1. BPH. 2. Urinary retention. 3. s/p simple retropubic prostatectomy 4. Hypertension 5. Hyperlipidemia 6. Previous smoker Discharge Medications New Medications: Docusate Sodium* (Colace*) 100 Mg Capsule 100 MG ORAL TWICE A DAY for 10 Days, #20 CAP Levofloxacin* (Levaquin*) 500 Mg Tablet 500 MG ORAL DAILY for 7 Days, #7 TAB Hydrocodone Bit/Acetaminophen 5-325* ([place] 5-325*) 1 Each Tablet 1 TAB ORAL Q4H PRN for 7 Days, #40 TAB Continued Medications: Atorvastatin Calcium* (Lipitor*) 10 Mg Tablet 10 MG ORAL DAILY for hyperlipidemia, #30 TAB 0 Refills (This prescription has been renewed) Metoprolol Succinate* (Metoprolol Succinate*) 25 Mg Tab.er.24h 25 MG ORAL DAILY for HTN, TAB (This prescription has been renewed) Tamsulosin HCl (Flomax) 0.4 Mg Cap.er.24h 0.4 MG ORAL DAILY for BPH, CAP (This prescription has been renewed) Discharge Discharge Disposition Patient was discharged to Discharge Instructions Discharge Instructions Special Instructions I have been assigned to complete a D/C Summary on this account. I was not involved in the patient management Vilma Zacarias NP Aug 17, 2019 11:07
== END 2019-08-15 12:55 | disposition home or self-care (01) | DRG 708 ==
LOC: SDSOVERFLO 05:56 → 3E 11:07
PROC: 0VT00ZZ Resection of Prostate, Open Approach (ICD-10-PCS; principal; 2019-08-12 07:30)
DX: N40.1 Benign prostatic hyperplasia with lower urinary tract symptoms (principal); R33.8 Other retention of urine; I10 Essential (primary) hypertension; E78.5 Hyperlipidemia, unspecified; Z87.891 Personal history of nicotine dependence
CPT/HCPCS: 36415; 80048; 85007; 85025; 86850; 86900; 86901; 87081; 94003; 94150; J2180; J2405; J2710